=== PATIENT | female | born 1990 | race Caucasian/White ===

== ENCOUNTER 2020-10-26 11:23 | Emergency (ER) | payer BC ==
[2020-10-26 13:46] LABS: HEMOGLOBIN 16.7 gm/dl (12.3-15.3); RED BLOOD COUNT 5.16 M/UL (4.00-5.10); WHITE BLOOD COUNT 7.7 K/UL (4.5-11.0)
[2020-10-26 14:08] LABS: BUN/CREATININE RATIO 16 (0-10)
[2020-10-26] MEDS ORDERED: HYDROCHLOROTHIA25 MG PO (15:11)
== END 2020-10-26 16:55 | disposition home or self-care (01) ==
LOC: ER1 11:23
PROVIDERS: Physician Assistant Medical
DX: I10 Essential (primary) hypertension (principal)
CPT/HCPCS: 71045; 80053; 81001; 84439; 84443; 85025; 93005; 99284

== ENCOUNTER → 2021-08-29 | Outpatient (CLI) | payer BC ==
[~2021-08-29] MED LIST: HYDROCHLOROTHIA25 MG PO
== END ==
LOC: KOH-I 12:44
DX: K59.00 Constipation, unspecified (principal)
CPT/HCPCS: 74018